=== PATIENT | male | born 1935 | race Caucasian/White ===

== ENCOUNTER 2016-10-05 10:03 | Day surgery (SDC) | payer MEDICARE, BC ==
[~2016-10-05 10:03] MED LIST: AMIODARONE HCL200 M1 PEG; ASPIRIN EC81 MG PO; CENTRUM SILVER1 EAC3 PO; CORTEF20 M1 PEG; CULTURELLE1 EAC2 PEG; DELTASONE20 MG PEG; GLUCOSAMINE CH1 EA10 PEG; GLUCOSAMINE CH1 EA13 PO; HYDROCODON-ACE1 EA16 PO; JUVEN PACKET1 EAC1 PEG; LIPITOR10 M1 PEG; LOVENOX60 MG/0.1 SC; METOPROLOL TART25 M1 PEG; NORCO 5-325 TA1 EACH PO; PLAVIX75 M1 PO; PREVACID30 M2 PEG; PRINIVIL20 M1 PO; REMERON15 M1 PEG; ROBAXIN-750750 M1 PO; SENNA PLUS TAB1 EAC1 PO; SULFATRIM 800-120 ML PEG; THERAGRAN-M PR1 EAC1 PEG; TYLENOL325 M2 PO; ZOCOR20 M1 PO; ZOLOFT50 M1 PEG; ZOLOFT50 M1 PO
[2016-11-19] MEDS ORDERED: LEXAPRO20 M2 PO (13:49)
[2016-11-19] MEDS ORDERED: GLUCOSAMINE HC500 M1 PO (13:50)
[2016-11-19] MEDS ORDERED: PLAQUENIL200 M1 PO (13:50)
[2016-11-19] MEDS ORDERED: MYRBETRIQ25 M1 PO (13:53)
[2016-11-19] MEDS ORDERED: OMEPRAZOLE20 M3 PO (13:54)
[2016-11-19] MEDS ORDERED: SENOKOT-S TABL1 EACH PO (13:55)
== END 2016-10-05 15:25 ==
LOC: SRG 10:03 → SHSC 10:04 → ORW 12:45 → SHSC 13:12
PROC: 0HRGXK3 Replacement of Left Hand Skin with Nonautologous Tissue Substitute, Full Thickness, External Approach (ICD-10-PCS; principal; 2016-10-05)
DX: S61.402A Unspecified open wound of left hand, initial encounter (principal); I25.10 Atherosclerotic heart disease of native coronary artery without angina pectoris; I10 Essential (primary) hypertension; F32.9 Major depressive disorder, single episode, unspecified; K76.0 Fatty (change of) liver, not elsewhere classified; D68.61 Antiphospholipid syndrome; E27.40 Unspecified adrenocortical insufficiency; I48.0 Paroxysmal atrial fibrillation; Z79.01 Long term (current) use of anticoagulants; Z79.52 Long term (current) use of systemic steroids; Z79.899 Other long term (current) drug therapy; Z87.891 Personal history of nicotine dependence; Z86.73 Personal history of transient ischemic attack (TIA), and cerebral infarction without residual deficits; Z86.19 Personal history of other infectious and parasitic diseases; Z95.5 Presence of coronary angioplasty implant and graft; Z98.1 Arthrodesis status; Z98.890 Other specified postprocedural states; X58.XXXA Exposure to other specified factors, initial encounter
CPT/HCPCS: J0171; J1580; J1720; J2250; J3370; Q4104

== ENCOUNTER 2016-10-11 00:51 | Inpatient (IN) | payer MEDICARE, BC ==
[2016-10-11 01:36] LABS: HCT-HEMATOCRIT 43.3 % (36.0-53.5); HGB-HEMOGLOBIN 14.6 gm/dl (13.5-17.0); MCH (MEAN CORPUSCULAR HGB) 30.9 pg (28.0-32.0); MCHC MEAN CORPUSCULAR HGB CONC 33.7 % (32.0-36.0); MCV (MEAN CELL VOLUME) 91.7 fl (82.0-96.0); MEAN PLATELET VOLUME 10.3 cmc (9.4-12.4); NEUTROPHIL-AUTOMATED 7.4 tho/cmm (1.6-8.0); PLATELET COUNT 156 tho/cmm (150-450); RED BLOOD COUNT 4.72 mil/cmm (4.40-5.70); RED CELL DISTRIBUTION WIDTH 16.3 % (12.4-16.4); WHITE BLOOD COUNT 11.9 tho/cmm (4.0-10.0)
[2016-10-11 01:54] LABS: ALB/GLOB RATIO 0.9 (0.8-2.0); ALBUMIN 3.5 g/dl (3.5-5.0); ALKALINE PHOSPHATASE 83 U/L (33-138); ALT/SGPT 38 U/L (12-78); ANION GAP 16 mmol/L (0-20); AST/SGOT 27 U/L (10-40); BILIRUBIN,TOTAL 0.3 mg/dl (0.0-1.5); BLOOD UREA NITROGEN 56 mg/dl (6-24); CARBON DIOXIDE-VENOUS 23 mmol/L (22-32); CHLORIDE 98 mmol/l (96-110); CREATININE 0.96 mg/dl (0.60-1.30); GLUCOSE 112 mg/dL (70-110); MAGNESIUM 2.3 mg/dl (1.8-2.6); POTASSIUM 5.1 mmol/L (3.7-5.1); SODIUM 132 mmol/L (135-145); eGFR VALUE FOR BLACK 85 mL/Min
[2016-10-11 01:56] LABS: ESR-ERYTHROCYTE SED RATE 26 mm/hr (0-20)
[2016-10-11 01:57] LABS: BASO % 0.6 % (0-2); BASO ABSOLUTE COUNT 0.1 tho/cmm (0.0-0.2); EOS % 0.6 % (0-7); EOSINOPHIL ABSOLUTE COUNT 0.1 tho/cmm (0.0-0.7); IMMATURE GRANULOCYTES PERCENT 9.2 % (0-0.3); LYMPH % 17.4 % (20-45); LYMPH ABSOLUTE COUNT 2.1 tho/cmm (0.8-4.5); MONO % 9.8 % (0-12); MONOCYTE ABSOLUTE COUNT 1.2 tho/cmm (0.0-1.2); NEUTROPHIL ABSOLUTE COUNT 7.4 tho/cmm (1.6-8.0); NEUTROPHILS % 62.4 % (40-80)
[2016-10-11] MEDS ORDERED: LANSOPRAZOLE PEG ×2 (02:02→02:35)
[2016-10-11] MEDS ORDERED: MILK OF MAGNESIA PEG ×2 (02:24→02:43)
[2016-10-11] MEDS ORDERED: BISCOLAX10 MG PR ×2 (02:25→02:42)
[2016-10-11] MEDS ORDERED: ORGAN-I NR200 M1 PEG (02:27)
[2016-10-11] MEDS ORDERED: MAGNESIUM CITR296 M1 PEG (02:27)
[2016-10-11] MEDS ORDERED: LEVAQUIN500 M1 PEG (02:28)
[2016-10-11] MEDS ORDERED: STOOL SOFTENER100 M3 PEG (02:28)
[2016-10-11] MEDS ORDERED: METOPROLOL TART25 M1 PEG (02:29)
[2016-10-11] MEDS ORDERED: AMIODARONE HCL200 M1 PEG (02:29)
[2016-10-11] MEDS ORDERED: THERA-M TABLET1 EACH PEG (02:30)
[2016-10-11] MEDS ORDERED: LIPITOR10 M1 PEG (02:30)
[2016-10-11] MEDS ORDERED: PREDNISONE20 M1 PEG (02:31)
[2016-10-11] MEDS ORDERED: SULFATRIM 800-120 ML PEG (02:34)
[2016-10-11] MEDS ORDERED: LOVENOX60 MG/0.1 SC (02:36)
[2016-10-11] MEDS ORDERED: SERTRALINE HCL50 M4 PEG (02:36)
[2016-10-11] MEDS ORDERED: REMERON15 M1 PEG (02:37)
[2016-10-11] MEDS ORDERED: GLUCOSAMINE CH1 EAC8 PEG (02:37)
[2016-10-11] MEDS ORDERED: RULOX SUSPENSI355 M2 PEG (02:38)
[2016-10-11] MEDS ORDERED: SENEXON-S TABL1 EAC1 PEG (02:38)
[2016-10-11] MEDS ORDERED: MAPAP325 M2 PEG (02:39)
[2016-10-11] MEDS ORDERED: HYDROCODON-ACE1 EA16 PEG (02:40)
[2016-10-11] MEDS ORDERED: ZOFRAN4 M2 PEG (02:41)
[2016-10-11] MEDS ORDERED: ALPRAZOLAM0.5 M3 PEG (02:42)
[2016-10-11] MEDS ORDERED: SILVADENE20 G1 TOP (02:44)
[2016-10-11] MEDS ORDERED: LIDOCAINE HCL5 M1 TOP (02:45)
[2016-10-11 02:47] LABS: PROTHROMBIN TIME 11.6 SECONDS (9.0-13.6)
[2016-10-11] MEDS ORDERED: ISOSOURCE 1.51000 M1 (02:47)
[2016-10-11 02:56] LABS: URINE BILIRUBIN NEGATIVE (NEG); URINE BLOOD MODERATE (NEG); URINE GLUCOSE (UA) NEGATIVE (NEG); URINE KETONE NEGATIVE (NEG); URINE LEUKOCYTE ESTERASE NEGATIVE (NEG); URINE NITRITE NEGATIVE (NEG); URINE PROTEIN MODERATE (NEG); URINE SPECIFIC GRAVITY 1.015 (1.003-1.030)
[2016-10-11 03:18] LABS: URINE APPEARANCE CLEAR; URINE COLOR YELLOW
[2016-10-11 03:19] LABS: URINE WBC RARE /[HPF] (0-5)
[2016-10-11 03:21] LABS: URINE AMORPHOUS 2+; URINE EPITHELIAL CELLS 0-1 /[HPF] (0-10)
[2016-10-12 06:31] LABS: ANION GAP 13 mmol/L (0-20); BLOOD UREA NITROGEN 34 mg/dl (6-24); CALCIUM 8.4 mg/dl (8.5-10.5); CARBON DIOXIDE-VENOUS 23 mmol/L (22-32); CHLORIDE 102 mmol/l (96-110); CREATININE 0.77 mg/dl (0.60-1.30); GLUCOSE 108 mg/dL (70-110); SODIUM 134 mmol/L (135-145); eGFR VALUE FOR BLACK >90 mL/Min
[2016-10-12 07:01] LABS: POTASSIUM 4.4 mmol/L (3.7-5.1)
[2016-10-12 07:45] LABS: BASO % 0.1 % (0-2); EOS % 0.1 % (0-7); HGB-HEMOGLOBIN 12.5 gm/dl (13.5-17.0); IMMATURE GRANULOCYTES ABSOLUTE 0.44 tho/cmm (0-0.03); IMMATURE GRANULOCYTES PERCENT 4.9 % (0-0.3); LYMPH % 15.8 % (20-45); LYMPH ABSOLUTE COUNT 1.4 tho/cmm (0.8-4.5); MCH (MEAN CORPUSCULAR HGB) 30.7 pg (28.0-32.0); MCHC MEAN CORPUSCULAR HGB CONC 32.9 % (32.0-36.0); MCV (MEAN CELL VOLUME) 93.4 fl (82.0-96.0); MEAN PLATELET VOLUME 10.1 cmc (9.4-12.4); MONO % 8.1 % (0-12); MONOCYTE ABSOLUTE COUNT 0.7 tho/cmm (0.0-1.2); NEUTROPHIL ABSOLUTE COUNT 6.4 tho/cmm (1.6-8.0); NEUTROPHIL-AUTOMATED 6.4 tho/cmm (1.6-8.0); PLATELET COUNT 142 tho/cmm (150-450); RED BLOOD COUNT 4.07 mil/cmm (4.40-5.70); RED CELL DISTRIBUTION WIDTH 16.3 % (12.4-16.4)
[2016-10-13 06:55] LABS: BASO % 0.3 % (0-2); EOS % 0.2 % (0-7); HCT-HEMATOCRIT 39.7 % (36.0-53.5); HGB-HEMOGLOBIN 13.2 gm/dl (13.5-17.0); IMMATURE GRANULOCYTES ABSOLUTE 0.35 tho/cmm (0-0.03); IMMATURE GRANULOCYTES PERCENT 3.9 % (0-0.3); LYMPH % 22.1 % (20-45); MCH (MEAN CORPUSCULAR HGB) 30.8 pg (28.0-32.0); MCHC MEAN CORPUSCULAR HGB CONC 33.2 % (32.0-36.0); MCV (MEAN CELL VOLUME) 92.5 fl (82.0-96.0); MEAN PLATELET VOLUME 9.8 cmc (9.4-12.4); MONO % 10.6 % (0-12); NEUTROPHIL ABSOLUTE COUNT 5.6 tho/cmm (1.6-8.0); NEUTROPHIL-AUTOMATED 5.6 tho/cmm (1.6-8.0); NEUTROPHILS % 62.9 % (40-80); PLATELET COUNT 142 tho/cmm (150-450); RED BLOOD COUNT 4.29 mil/cmm (4.40-5.70); RED CELL DISTRIBUTION WIDTH 16.2 % (12.4-16.4)
[2016-10-13 07:07] LABS: ANION GAP 13 mmol/L (0-20); BLOOD UREA NITROGEN 27 mg/dl (6-24); CALCIUM 8.9 mg/dl (8.5-10.5); CARBON DIOXIDE-VENOUS 27 mmol/L (22-32); CHLORIDE 103 mmol/l (96-110); CHOLESTEROL 198 mg/dl (120-200); CREATININE 0.78 mg/dl (0.60-1.30); GLUCOSE 87 mg/dL (70-110); HDL CHOLESTEROL 56 mg/dl (40-60); LDL CHOLESTEROL 89 mg/dl (0-99); POTASSIUM 4.1 mmol/L (3.7-5.1); SODIUM 139 mmol/L (135-145); VLDL 53 mg/dl (0-30); eGFR VALUE FOR BLACK >90 mL/Min
[2016-10-13 07:08] LABS: TRIGLYCERIDES 265 mg/dl (<149)
[2016-10-14 01:38] LABS: BASO % 0.3 % (0-2); EOS % 0.6 % (0-7); EOSINOPHIL ABSOLUTE COUNT 0.1 tho/cmm (0.0-0.7); HCT-HEMATOCRIT 40.7 % (36.0-53.5); HGB-HEMOGLOBIN 13.4 gm/dl (13.5-17.0); IMMATURE GRANULOCYTES ABSOLUTE 0.28 tho/cmm (0-0.03); IMMATURE GRANULOCYTES PERCENT 3.2 % (0-0.3); LYMPH % 16.7 % (20-45); LYMPH ABSOLUTE COUNT 1.5 tho/cmm (0.8-4.5); MCH (MEAN CORPUSCULAR HGB) 30.5 pg (28.0-32.0); MCHC MEAN CORPUSCULAR HGB CONC 32.9 % (32.0-36.0); MCV (MEAN CELL VOLUME) 92.5 fl (82.0-96.0); MEAN PLATELET VOLUME 10.2 cmc (9.4-12.4); MONO % 11.6 % (0-12); NEUTROPHILS % 67.6 % (40-80); PLATELET COUNT 152 tho/cmm (150-450); RED CELL DISTRIBUTION WIDTH 16.3 % (12.4-16.4); WHITE BLOOD COUNT 8.8 tho/cmm (4.0-10.0)
[2016-10-15 04:42] LABS: BASO % 0.3 % (0-2); EOS % 0.6 % (0-7); HCT-HEMATOCRIT 38.7 % (36.0-53.5); HGB-HEMOGLOBIN 12.8 gm/dl (13.5-17.0); IMMATURE GRANULOCYTES ABSOLUTE 0.12 tho/cmm (0-0.03); IMMATURE GRANULOCYTES PERCENT 1.7 % (0-0.3); LYMPH % 20.5 % (20-45); LYMPH ABSOLUTE COUNT 1.5 tho/cmm (0.8-4.5); MCH (MEAN CORPUSCULAR HGB) 31.5 pg (28.0-32.0); MCHC MEAN CORPUSCULAR HGB CONC 33.1 % (32.0-36.0); MCV (MEAN CELL VOLUME) 95.3 fl (82.0-96.0); MEAN PLATELET VOLUME 10.4 cmc (9.4-12.4); MONO % 10.7 % (0-12); MONOCYTE ABSOLUTE COUNT 0.8 tho/cmm (0.0-1.2); NEUTROPHIL ABSOLUTE COUNT 4.7 tho/cmm (1.6-8.0); NEUTROPHIL-AUTOMATED 4.7 tho/cmm (1.6-8.0); NEUTROPHILS % 66.2 % (40-80); PLATELET COUNT 172 tho/cmm (150-450); RED BLOOD COUNT 4.06 mil/cmm (4.40-5.70); RED CELL DISTRIBUTION WIDTH 16.5 % (12.4-16.4); WHITE BLOOD COUNT 7.1 tho/cmm (4.0-10.0)
[2016-10-15 13:06] LABS: URINE TOTAL PROTEIN-RANDOM 22.9 mg/dl (<11.8)
[2016-10-15 13:15] LABS: URINE PRT/CR RATIO 3.23 Ratio (0.0-0.20)
[2016-10-15] MEDS ORDERED: ASPIRIN325 M3 PEG (13:45)
[2016-10-15] MEDS ORDERED: KEPPRA500 M3 PEG (13:45)
[2016-10-15] MEDS ORDERED: SYNTHROID125 MC1 PEG (13:47)
[2016-11-19] MEDS ORDERED: LEXAPRO20 M2 PO (13:49)
[2016-11-19] MEDS ORDERED: GLUCOSAMINE HC500 M1 PO (13:50)
[2016-11-19] MEDS ORDERED: PLAQUENIL200 M1 PO (13:50)
[2016-11-19] MEDS ORDERED: MYRBETRIQ25 M1 PO (13:53)
[2016-11-19] MEDS ORDERED: OMEPRAZOLE20 M3 PO (13:54)
[2016-11-19] MEDS ORDERED: SENOKOT-S TABL1 EACH PO (13:55)
== END 2016-10-15 15:37 | disposition other institution (70) | DRG 65 ==
LOC: EDMED 00:51 → EMR2 05:31 → 5EB 05:38
PROVIDERS: Emergency Medicine; Family Medicine; Internal Medicine Hematology & Oncology; Internal Medicine Medical Oncology; ADMIT Family Medicine
PROC: 05H633Z Insertion of Infusion Device into Left Subclavian Vein, Percutaneous Approach (ICD-10-PCS; principal; 2016-10-12)
DX: I63.9 Cerebral infarction, unspecified (principal); I69.351 Hemiplegia and hemiparesis following cerebral infarction affecting right dominant side; E46 Unspecified protein-calorie malnutrition; E27.40 Unspecified adrenocortical insufficiency; D68.61 Antiphospholipid syndrome; D59.1 Other autoimmune hemolytic anemias; E87.1 Hypo-osmolality and hyponatremia; I48.0 Paroxysmal atrial fibrillation; I10 Essential (primary) hypertension; D69.6 Thrombocytopenia, unspecified; R56.9 Unspecified convulsions; I69.320 Aphasia following cerebral infarction; I25.10 Atherosclerotic heart disease of native coronary artery without angina pectoris; Z86.19 Personal history of other infectious and parasitic diseases; Z95.5 Presence of coronary angioplasty implant and graft; Z93.1 Gastrostomy status; Z66 Do not resuscitate; Z98.1 Arthrodesis status; E03.9 Hypothyroidism, unspecified; R13.10 Dysphagia, unspecified; T46.2X5A Adverse effect of other antidysrhythmic drugs, initial encounter; D72.829 Elevated white blood cell count, unspecified; G93.89 Other specified disorders of brain; S60.222A Contusion of left hand, initial encounter
CPT/HCPCS: A9577; C1751; C9113; G9159-GN-CM; G9160-GN-CL; J1650; J1720; J1953; J7030; J7050